=== PATIENT | male | born 1945 | race Caucasian/White ===

== ENCOUNTER 2021-07-09 13:18 | Outpatient (CLI) | payer MEDICARE, SELFPAY ==
--- NOTE | 2021-07-09 13:15 | ECG_ITS ---
Measurements Intervals [place] Rate: 68 P: 55 SC: 175 QRS: -14 QRSD: 94 T: 32 QT: 370 QTc: 394 Interpretive Statements SINUS RHYTHM LOW QRS VOLTAGE IN PRECORDIAL LEADS DELAYED PRECORDIAL R/S TRANSITION BASELINE ARTIFACT- I, II, III, AVL, AVF BORDERLINE ECG Electronically Signed On 07-09-2021 17:17:59 CDT by Sebas Wong D.O.
[2021-07-09 13:49] LABS: Basophils Percent Auto 0.4 % (0.2-1.2); Eosinophils Percent Auto 0.7 % (0-4.4); Hematocrit 46.1 % (42.0-52.0); Hemoglobin 15.4 g/dL (14.0-18.0); Immature Granulocyte Absolute 0.01 K/mm3 (0.00-0.031); Immature Granulocyte Percent A 0.2 % (0-0.5); Immature Platelet Fraction Pct 4.2 % (0.9-11.2); Lymphocytes Absolute Auto 1.29 K/mm3 (0.9-3.2); Lymphocytes Percent Auto 22.8 % (18.3-44.2); Mean Corpuscular HGB Conc 33.4 g/dl (32-36); Mean Corpuscular Volume 98.7 fl (80-100); Mean Platelet Volume 9.9 fl (7.4-10.4); Monocytes Absolute Auto 0.2 K/mm3 (0.1-0.6); Monocytes Percent Auto 3.7 % (2.6-8.5); Neutrophils Absolute Auto 4.1 K/mm3 (1.3-6.7); Neutrophils Percent Auto 72.2 % (45.5-73.1); Platelet Count Result 143 k/mm3 (150-375); Red Blood Count 4.67 M/mm3 (4.6-6.20); Red Cell Distribution Width 14.3 % (11.5-14.5); White Blood Count 5.7 K/mm3 (4.5-10.0)
[2021-07-09 13:59] LABS: Alanine Aminotransferase 28 U/L (4-50); Albumin Level 4.7 g/dL (3.5-5.1); Alkaline Phosphatase 68 U/L (38-126); Anion Gap 8 mmol/L (8-16); Aspartate Amino Transferase 32 U/L (17-59); Bilirubin,Total 1.5 mg/dL (0.2-1.3); Blood Urea Nitrogen 26 mg/dL (9-20); Calcium 9.4 mg/dL (8.4-10.2); Carbon Dioxide 28 mmol/L (22-30); Chloride 102 mmol/L (98-107); Estimated Glomerular Filt Rate > 60; Glucose 93 mg/dL (65-110); Sodium 138 mmol/L (137-145)
== END 2021-07-09 13:19 | disposition home or self-care (01) ==
LOC: ANHSURGERY 13:24
PROVIDERS: PCP Nurse Practitioner Family; Visit Provider Surgery
DX: K40.90 Unilateral inguinal hernia, without obstruction or gangrene, not specified as recurrent (principal)
CPT/HCPCS: 36415; 80053; 85025; 85055; 93005

== ENCOUNTER 2021-07-15 02:12 | Day surgery (SDC) | payer MEDICARE, SELFPAY ==
[2021-07-08 15:55] VITALS: BMI 27.8
[2021-07-15 06:45] VITALS: BMI 28.3
[2021-07-15] MEDS: ACETAMINOPHEN 500 MG TABLET 1000 MG PO (07:40)
[2021-07-15] MEDS: KETOROLAC 15 MG/ML VIAL (*BKC) IV PUSH (07:40)
[2021-07-15] MEDS: LACTATED RINGERS 1,000 ML 30 ML IV CONT ×2 (07:55→11:35)
--- NOTE | 2021-07-15 08:15 | WPDANESEPPF ---
Anes - Initial Pre Proc Eval Procedure: Operation Date: 07/15/21 08:30 Proposed Procedures p Open Right Inguinal Hernia Repair - Umair Ron MD Date/Time: 07/15/21 08:15 Surgeon: Umair Ron MD Pre Op Diagnosis: right inguinal hernia Patient Data Age: 76 Gender: M Height: 1.8 m Weight: 92 kg Allergies Allergy/AdvReac Type Severity Reaction Status Date / Time Penicillins Allergy Hives Verified 07/15/21 06:37 Home Medications Medication Instructions Recorded Confirmed Type duloxetine 60 mg PO DAILY 10/24/19 07/15/21 History glucosamine-chondroitin 30 ml PO DAILY 10/24/19 07/15/21 History omega 6-que-fke-fish oil [Fish Oil] 1 cap PO DAILY 10/24/19 07/15/21 History pregabalin [Lyrica] 100 mg PO TID 10/24/19 07/15/21 History multivitamin 1 tablet PO DAILY 07/04/21 07/15/21 History Patient hx anesthesia problems: none Family hx anesthesia problems: none PMFSH Past Medical History Medical History Anxiety Chronic pain Eczema History of prostate cancer Neuropathy Osteoarthritis cervical spine Surgical History Surgical History H/O discectomy 1999 History of carpal tunnel release 2009 History of lumbar surgery 2000 History of prostatectomy 2002 History of rotator cuff surgery 2017 Family History Family History Mother Kidney failure Alzheimer disease Sibling Tongue cancer Other Cerebrovascular accident Social History Social History Smoking status: Never smoker Alcohol intake: never Substance use: never Living arrangements: with family Additional occupation/education comments: Retired teacher Spiritual care concerns: No Anes - Eval Final PreProcedure Day of Procedure 07/15/21 08:15 Patient weight: overweight Heart: regular rate and rhythm Lungs: clear to auscultation Airway: Mallampati scale class II Neurological: alert and oriented Last oral intake: >/= 8 hours ASA classification: III Emergent: no Anesthetic plan: proceed Anesthesia type and monitoring: general LMA and standard monitoring Informed Consent: The patient's anesthetic plan and its attendant risks and benefits were discussed with the patient/family/POA. Questions were solicited and answers provided to the satisfaction of the patient/family/POA.
--- NOTE | 2021-07-15 08:41 | WPDHPUPDATE1 ---
History and Physical Update Update Date/Time: 07/15/21 08:41 History and Physical has been reviewed, including an updated exam of the patient. There are NO changes in the patient's condition. Risks, benefits, and alternatives have been discussed and questions answered. Patient agrees to proceed with procedure.
[2021-07-15] MEDS: CLINDAMYCIN 900 MG/D5W 50 ML 900 MG/50 ML PIGGYBACK 50 MG IVPB (08:43)
--- NOTE | 2021-07-15 09:07 | SUR.PREOP ---
late noted, 814; SPOKE WITH DR VELEZ REGARDING PT ALLERGY OF PCN, HIVES AND TONGUE SWELLING. HE CONFIRMED CLINDAMYCIN 900 ORDER
[2021-07-15 10:18] VITALS: BP 87/52; PULSE 62; RESP 16
[2021-07-15] MEDS: BUPIVACAINE HCL 0.5% PF 30 ML VIAL INFILTRATE (10:31)
[2021-07-15 11:18] VITALS: BP 94/60; PULSE 62; RESP 16; O2SAT 94
--- NOTE | 2021-07-15 11:18 | W.PM.PROC2 ---
Procedure Note - Detailed Date of Procedure 07/15/21 Pre-op Diagnosis right inguinal hernia Post-op Diagnosis other (Right direct and indirect inguinal hernia) Procedure Performed Open inguinal hernia repair with mesh Surgeon Umair Ron MD [employer] Jacklyn [place], [place] 1st assist Anesthesia local (0.5% Marcaine with epinephrine plus 1% xylocaine plain.) and other (GIVS) Indications See office H&P Bulging and discomfort in the right groin. Findings Patient had a moderate-sized indirect inguinal hernia without any abdominal contents up in the sac. Patient also had definite weakness in the direct space which was repaired with suture and mesh. Description of Procedure The patient was placed in the supine position on the operating room table. After induction of adequate MAC anesthesia by [facility] Anesthesia staff, we carefully prepped the entire abdomen and scrotum with chlorhexidine. One sterile towel was placed underneath the scrotum. Four towels were placed around the right lower quadrant. Following this, a time-out was performed with the surgical team and the patient's surgical procedure and site was confirmed. We then carefully outlined a curvilinear incision in the right groin area and a curvilinear incision was made after introducing a mixture of local anesthetic, using 0.5% Marcaine with epinephrine and 1% Xylocaine plain as both an ilioinguinal nerve block and at the incision site with a 25 gauge needle. Following this, I carefully made the incision, and carried it down through the subcutaneous tissue. Kip's fascia was incised and then we identified the external oblique aponeurosis and the external ring. Following this, the same mixture of local anesthetic was infiltrated underneath the external oblique aponeurosis and this was split in the direction of it's fibers with a #15 blade initially and then using metzenbaum scissors. I then opened the external oblique through the external ring and incised this somewhat posteriorly and superiorly exposing the ilioinguinal nerve. This nerve was carefully preserved laterally and then I carefully and meticulously dissected out the cord structures at the level of the pubic tubercle. I then surrounded these structures at the level of pubic tubercle and placed a Samson drain around them. I then carefully dissected the hernia sac up and off of the cord tissues, and brought it up and out of the incision. We carefully dissected the layers and cremasteric tissues off the hernia sac and then eventually opened the hernia sac. Holding this up with 4 hemostats, I carefully dissected it off the cord structures, being careful to avoid injury to the Pampiniform plexus veins, the spermatic artery and the vas. Once the hernia sac was carefully dissected back to the level of the internal ring, a suture ligation pursestring suture of 2-0 silk was used to circumvent and close the base of the indirect hernia sac. Following this, a 2 - 0 silk tie was placed just below this, tied tight, and then distally the hernia sac was amputated with Bovie cautery. It was then passed off the field for pathologic evaluation. Following this, we took care to recreate an appropriate inguinal canal. This was done by carefully dissecting from the internal ring down to the pubic bone, dissecting away any cremasteric tissue. A running suture of 0 Prolene was placed in the pubic tubercle and run up to the internal ring, approximating the Transversalis fascia to the ilioinguinal ligament. Once this was done, we then opened the rectangular piece of Prolene mesh and it was then cut into an 11 x 6 cm elliptical sheet with a keyhole in it and I then positioned it nicely over Hesselbach's triangle. One suture of 2-0 Ethibond was used to anchor it against the pubic tubercle. Following this, an 0 Prolene was used to suture the lateral edge of this mesh to the edge of the ilioinguinal ligament and the medial edge was sutured
[2021-07-15 11:48] VITALS: BP 100/60; PULSE 60; RESP 16
--- NOTE | 2021-07-15 11:53 | SUR.PHASEII ---
ASSESSMENTS DONE AT 1018 WERE TO BE TIMED AT 1048.
[2021-07-15 12:18] VITALS: BP 90/58; PULSE 60; RESP 16
[2021-07-15 12:48] VITALS: BP 98/60; PULSE 63; RESP 16
[2021-07-15 13:05] VITALS: BP 97/62; PULSE 71; RESP 16
--- NOTE | 2021-07-15 15:10 | SUR.PHASEII ---
PT URINATED WITHOUT ISSUE AT 1300.
== END 2021-07-15 13:15 | disposition home or self-care (01) ==
PROVIDERS: PCP Nurse Practitioner Family; Visit Provider Surgery
PROC: (CPT 49505; principal; 2021-07-15 08:30)
DX: K40.90 Unilateral inguinal hernia, without obstruction or gangrene, not specified as recurrent (principal); D17.6 Benign lipomatous neoplasm of spermatic cord; Z85.46 Personal history of malignant neoplasm of prostate; Z90.79 Acquired absence of other genital organ(s); K42.9 Umbilical hernia without obstruction or gangrene; M47.812 Spondylosis without myelopathy or radiculopathy, cervical region; F41.9 Anxiety disorder, unspecified; L30.9 Dermatitis, unspecified; G62.9 Polyneuropathy, unspecified
CPT/HCPCS: 49505; 88302; A9270; C1781; J1885; J2250; J2370; J2405; J2704; J3010; J7120